=== PATIENT | female | born 1955 | race Caucasian/White ===

== ENCOUNTER 2017-12-03 11:03 | Emergency (ER) | payer OTHER ==
[~2017-12-03] VITALS: Ht 162.6 cm; Wt 70.3 kg
[2017-12-03 12:14] LABS: ABSOLUTE BASOPHIL COUNT 0 /CUMM (0.0-0.2); ABSOLUTE EOSINOPHIL COUNT 0 /CUMM (0.0-0.7); ABSOLUTE GRANULOCYTE CT 4.6 /CUMM (1.4-6.5); ABSOLUTE LYMPH COUNT 0.8 /CUMM (1.2-3.4); ABSOLUTE MONOCYTE COUNT 0.4 /CUMM (0.10-0.60); BASOPHIL % 0.3 % (0.0-2.0); EOSINOPHIL % 0.2 % (0-5); GRANULOCYTE % 78.6 % (42.2-75.2); HEMATOCRIT 41.9 % (37-47); MEAN CORPUSCULAR HGB 30.4 PG (27.0-31.0); MEAN CORPUSCULAR HGB CONC 33.9 G/DL (33.0-37.0); MEAN CORPUSCULAR VOLUME 89.5 FL (81.0-99.0); MEAN PLATELET VOLUME 7.7 FL (7.4-10.4); PLATELET COUNT 281 /CUMM (130-400); RBC DISTRIBUTION WIDTH 13.2 % (11.5-14.5); RED BLOOD CELL CT 4.68 /CUMM (4.20-5.40); WHITE BLOOD CELL COUNT 5.8 /CUMM (4.8-10.8)
--- NOTE | 2017-12-03 12:23 | ED CARDIAC/CP/PALPITATIONS ---
History of Present Illness General Chief Complaint: Chest Pain Stated Complaint: SENT BY URGENT CARE FOR EVAL OF CHEST PAIN Source: patient Exam Limitations: no limitations Vital Signs & Intake/Output Vital Signs & Intake/Output Vital Signs Date Time Temp Pulse Resp B/P B/P Pulse O2 O2 Flow FiO2 Mean Ox Delivery Rate 12/03 1600 98.5 78 18 147/76 98 Room Air 12/03 1330 76 18 162/89 97 Room Air 12/03 1116 98.5 85 20 171/105 98 Room Air Allergies Coded Allergies: No Known Allergies (12/03/17) Reconcile Medications Levothyroxine Sodium 112 MCG TABLET 1 TAB PO DAILY AC THYROID (Reported) Triage Note: SIB [facility] FOR CHEST PRESSURE THAT RADIATES INTO LEFT ARM X 1 WEEK. PT STATES NOT CONSTANT D/T SHE WAS TAKING NAPROXEN AND THE PAIN WOULD GO AWAY THEN COME BACK AT NIGHT. STATES SHE HAS BEEN PAINTING HER HOUSE AND DOING SOME RENOVATIONS Triage Nurses Notes Reviewed? yes Onset: Abrupt Duration: week(s):, intermittent Timing: recent history Quality/Severity: moderate, pressure Location: shoulder, back Activities at Onset: none Prior Chest Pain/Card Workup: no prior cardiac workup HPI: 62-year-old female comes into the emergency room for this intermittent pain/ pressure that she's been experiencing pain to her left shoulder and left back region. Symptoms going on for the past few weeks intermittently. Nothing seems to make the symptoms better or worse. The pain is not exacerbated by movement. She denies any shortness of breath nausea vomiting diaphoresis. Dad had a prior ID age 55. She denies any smoking. (Anoop Seay) Past History Travel History Traveled to [place] past 21 day No Medical History Any Pertinent Medical History? see below for history Endocrine: hypothyroidism Surgical History Surgical History: non-contributory Psychosocial History What is your primary language [place] Tobacco Use: Never used ETOH Use: occasional use Illicit Drug Use: denies illicit drug use Family History Hx Contributory? No (Anoop Seay) Review of Systems Review of Systems Constitutional: Reports: no symptoms. EENTM: Reports: no symptoms. Respiratory: Reports: no symptoms. Cardiovascular: Reports: see HPI. GI: Reports: no symptoms. Genitourinary: Reports: no symptoms. Musculoskeletal: Reports: see HPI. Skin: Reports: no symptoms. Neurological/Psychological: Reports: no symptoms. Hematologic/Endocrine: Reports: no symptoms. Immunologic/Allergic: Reports: no symptoms. All Other Systems: Reviewed and Negative (Anoop Seay) Physical Exam Physical Exam General Appearance: well developed/nourished, no apparent distress, alert, awake Head: atraumatic, normal appearance Eyes: Bilateral: normal appearance. Ears, Nose, Throat: normal ENT inspection, hearing grossly normal Neck: normal inspection Respiratory: normal breath sounds, no respiratory distress Cardiovascular: regular rate/rhythm Back: normal inspection Extremities: normal inspection Neurologic/Psych: awake, alert, oriented x 3, normal gait Skin: intact, normal color Core Measures ACS in differential dx? Yes CVA/TIA Diagnosis No Sepsis Present: No Sepsis Focused Exam Completed? No All Positive = PERC Ruled Out: Positive: heart rate < 100 bpm, O2 sat > 94%, no hemoptysis, no hormone use, no prior DVT or PE, no unilateral leg swellin, no surgery/trauma w/in 4w. Wells Criteria Score: 0 (Anoop Seay) Progress Differential Diagnosis: AMI, aortic dissection, musculoskeletal pain, myocarditis, pancreatitis, pericarditis, pneumonia, pneumothorax, pulmonary embolism, PUD/GERD, unstable angina Plan of Care: Orders Procedure Date/time Status TROPONIN LEVEL 12/03 1505 Complete EKG 12/03 1505 Active Add-on Test (ER Only) 12/03 1247 Active Add-on Test (ER Only) 12/03 1222 Active Telemetry/Court Worker 12/03 1222 Active THYROID STIMULATING HORMONE 12/03 1203 Complete FREE T4 12/03 1203 Complete TROPONIN LEVEL 12/03 1151 Complete D-DIMER 12/03 1151 Complete COMPREHENSIVE METABOLIC PANEL 12/03 1151 Complete CBC WITHOUT DIFFERENTIAL 12/03 1151 Complete EKG 12/03 1105 Active Laboratory Tests 12/03/17 1505: Troponin I < 0.01 12/03/17 1311: D-Dimer High Sensitivty < 200 12/03/17 1203: Anion Gap 14, Estimated GFR > 60, BUN/Creatinine Ratio 24.3, Glucose 119 H, Calcium 9.9, Total Bilirubin 0.8, AST 21, ALT 34, Alkaline Phosphatase 102, Troponin I < 0.01, Total Protein 7.5, Albumin 4.5, Globulin 3.0, Albumin/ Globulin Ratio 1.5, TSH 1.560, Free T4 1.51, CBC w Diff NO MAN DIFF REQ, RBC 4.68, MCV 89.5, MCH 30.4, MCHC 33.9, RDW 13.2, MPV 7.7, Gran % 78.6 H, Lymphocytes % 14.1 L, Monocytes % 6.8, Eosinophils % 0.2, Basophils % 0.3, Absolute Granulocytes 4.6, Absolute Lymphocytes 0.8 L, Absolute Monocytes 0.4, Absolute Eosinophils 0, Absolute Basophils 0 Diagnostic Imaging: Viewed by Me: Radiology Read. Discussed w/RAD: Radiology Read. Radiology Impression: PATIENT: JEREMÍAS BIGGS PRESENT AGE: 62 PATIENT ACCOUNT NO: [id number] : 55 LOCATION: [facility] ORDERING PHYSICIAN: Anoop LUONG SERVICE DATE: 12/03/17 EXAM TYPE : RAD - XRY-CHEST XRAY, TWO VIEWS EXAMINATION: XR CHEST CLINICAL INFORMATION: Chest pain COMPARISON: None TECHNIQUE: 2 views of the chest were obtained. FINDINGS: The lungs are well-inflated and clear. Trachea is midline in position. No evidence of interstitial disease, focal consolidation, mass, pneumothorax or pleural effusion. The cardiomediastinal silhouette and pulmonary shannan have normal size and contour. Bones appear diffusely osteoporotic. There is hyperkyphosis of the degenerated thoracic spine. Several thoracic vertebra exhibit mild anterior height loss. No acute fractures are seen. The examined upper abdomen is unremarkable. IMPRESSION: No acute cardiopulmonary disease. DICTATED BY: Venkatesh Walker MD DATE/TIME DICTATED:12/03/171320 BODYBUILDER:CARMELO DATE/TIME TRANSCRIBED:12/03/171320 CONFIDENTIAL, DO NOT COPY WITHOUT APPROPRIATE AUTHORIZATION. <Electronically signed in Other Vendor System> SIGNED BY: Venkatesh Walker MD 12/03/171325 Initial ED EKG: normal sinus rhythm, rate (84), nonspecific ST T wave chg Repeat EKG: unchanged (Anoop Seay) Departure Departure Disposition: HOME OR SELF CARE Condition: Stable Clinical Impression Primary Impression: Atypical chest pain Referrals: Santiago ARAIZA,Chandni (PCP/Family) Kwaku ARAIZA PHD,Timothy Mckoy Additional Instructions: Follow-up with agronomy teacher provided. Return if any concerns worsening symptoms. Return immediately if any recurrent pain. Return sooner if any other concerns. Please go overall results with PCP. The cause of your symptoms are unclear at this time. Departure Forms: Customer Survey General Discharge Information Comments 12/03/2017 7:26:57 PM Patient has 2 unchanged EKGs. Chest pain free here in the emergency room. Clinically looks well. Nontoxic-appearing. At this point in time I feel patient can follow-up with cardiology as outpatient. Patient was reevaluated multiple times in the emergency room and continued to remain asymptomatic. Case was discussed with Dr. elena. (Anoop Seay) PA/LACING OPERATOR Co-Sign Statement Statement: ED Attending supervision documentation- x I saw and evaluated the patient. I have also reviewed all the pertinent lab results and diagnostic results. I agree with the findings and the plan of care as documented in the PA's/LACING OPERATOR's documentation. [] I have reviewed the ED Record and agree with the PA's/LACING OPERATOR's documentation. [] Additions or exceptions (if any) to the PAs/LACING OPERATOR's note and plan are summarized below: [] (Russ ARAIZA,Dante) Critical Care Note Critical Care Note Critical Care Time: non-applicable (Anoop Seay)
[2017-12-03] MEDS ORDERED: LEVOTHYROXINE112 MCG PO (12:24)
--- NOTE | 2017-12-03 13:26 | RADIOLOGY REPORT ---
EXAMINATION: XR CHEST CLINICAL INFORMATION: Chest pain COMPARISON: None TECHNIQUE: 2 views of the chest were obtained. FINDINGS: The lungs are well-inflated and clear. Trachea is midline in position. No evidence of interstitial disease, focal consolidation, mass, pneumothorax or pleural effusion. The cardiomediastinal silhouette and pulmonary shannan have normal size and contour. Bones appear diffusely osteoporotic. There is hyperkyphosis of the degenerated thoracic spine. Several thoracic vertebra exhibit mild anterior height loss. No acute fractures are seen. The examined upper abdomen is unremarkable. IMPRESSION: No acute cardiopulmonary disease.
[2017-12-03 16:00] VITALS: BP 147/76
== END 2017-12-03 16:49 ==
LOC: ERH 11:03
PROVIDERS: Emergency Medicine
DX: R07.89 Other chest pain (principal)
CPT/HCPCS: 71046; 93005; 93010